=== PATIENT | male | born 1965 | race Caucasian/White ===

== ENCOUNTER 2017-07-20 10:04 | Day surgery (SDC) | payer OTHER ==
[~2017-07-20] VITALS: Ht 188 cm; Wt 145.2 kg
[~2017-07-20 10:04] MED LIST: ATOR80 PO; ATORVASTATIN CA80 MG; Advil200 M1 PO; DULO30 PO; FISH1000; LEVSOD125 PO; LISHYD2025 PO; LIVALO4 MG PO; METO25ER; OSTERA TABLET1 EACH
== END 2017-07-20 13:11 | disposition home or self-care (01) ==
LOC: ORSCSDS 10:04
PROVIDERS: Internal Medicine Gastroenterology
PROC: 0DBL8ZX Excision of Transverse Colon, Via Natural or Artificial Opening Endoscopic, Diagnostic (ICD-10-PCS; principal; 2017-07-20 11:15)
PROC: 0DBM8ZX Excision of Descending Colon, Via Natural or Artificial Opening Endoscopic, Diagnostic (ICD-10-PCS; principal; 2017-07-20 11:15)
DX: Z86.010 Personal history of colon polyps (principal); D12.3 Benign neoplasm of transverse colon; D12.4 Benign neoplasm of descending colon; K57.30 Diverticulosis of large intestine without perforation or abscess without bleeding; K64.8 Other hemorrhoids; E66.01 Morbid (severe) obesity due to excess calories; Z68.41 Body mass index [BMI] 40.0-44.9, adult; E03.9 Hypothyroidism, unspecified; E78.5 Hyperlipidemia, unspecified; G47.33 Obstructive sleep apnea (adult) (pediatric); I10 Essential (primary) hypertension; F32.9 Major depressive disorder, single episode, unspecified; Z87.891 Personal history of nicotine dependence; Z79.899 Other long term (current) drug therapy
CPT/HCPCS: 88305; J2250; J7120

== ENCOUNTER 2018-11-15 13:16 | Day surgery (SDC) | payer OTHER ==
[~2018-11-15] VITALS: Ht 190.5 cm; Wt 148.6 kg
[~2018-11-15 13:16] MED LIST changes: -ATORVASTATIN CA80 MG; +ATORVASTATIN CA80 MG PO; +FISH OIL 1,2001 EACH PO; +VITAMIN B122500 MCG PO
--- NOTE | 2018-11-15 16:25 | NUR ---
11/15/18 [id number] Karlee Mir WHEN ASKED PT. IF HE HAD ANY PAIN, PT. VERBALIZED HAVING A SHARP PAIN BUT TOLERABLE. PT. INSTRUCTED PROBABLY SOME AIR IN THE COLON & EVENTUALLY IT WOULD ABSORB.
== END 2018-11-15 16:24 | disposition home or self-care (01) ==
LOC: ORSCSDS 13:16
PROVIDERS: Internal Medicine Gastroenterology
PROC: 0DBL8ZX Excision of Transverse Colon, Via Natural or Artificial Opening Endoscopic, Diagnostic (ICD-10-PCS; principal; 2018-11-15 14:45)
DX: Z86.010 Personal history of colon polyps (principal); D12.3 Benign neoplasm of transverse colon; K57.30 Diverticulosis of large intestine without perforation or abscess without bleeding; K64.8 Other hemorrhoids; I10 Essential (primary) hypertension; E03.9 Hypothyroidism, unspecified; E78.5 Hyperlipidemia, unspecified; Z87.891 Personal history of nicotine dependence; Z79.899 Other long term (current) drug therapy
CPT/HCPCS: 88305; J2704; J7120

== ENCOUNTER 2019-02-10 09:33 | Day surgery (SDC) | payer OTHER ==
[~2019-02-10] VITALS: Ht 190.5 cm; Wt 153.3 kg
[~2019-02-10 09:33] MED LIST changes: +[UNRECOGNIZED DRUG - OTHER]
--- NOTE | 2019-02-10 11:56 | NUR ---
02/10/19 1156 Kandis García PT INTO RECLINER IN RECOVERY W/O DIFFICULTY. SPOUSE AT CHAIRSIDE. PT C/O 04/18 PAIN IN THE LEFT WRIST AND WISHES TO BE MEDICATED WITH PO PAIN MEDICATION PRIOR TO DISCHARGE. VSS. PT TOLERATING PO INTAKE WELL.
== END 2019-02-10 12:15 | disposition home or self-care (01) ==
LOC: ORSCSDS 09:33
PROVIDERS: Orthopaedic Surgery
PROC: 01N50ZZ Release Median Nerve, Open Approach (ICD-10-PCS; principal; 2019-02-10 10:45)
DX: G56.02 Carpal tunnel syndrome, left upper limb (principal); I10 Essential (primary) hypertension; E03.9 Hypothyroidism, unspecified; G47.33 Obstructive sleep apnea (adult) (pediatric); E66.01 Morbid (severe) obesity due to excess calories; Z68.41 Body mass index [BMI] 40.0-44.9, adult; Z79.899 Other long term (current) drug therapy
CPT/HCPCS: A9270-GY; J0690; J1885; J2250; J2704; J3010; J7120

== ENCOUNTER 2019-04-14 08:25 | Day surgery (SDC) | payer OTHER ==
[~2019-04-14] VITALS: Ht 190.5 cm; Wt 155.4 kg
[~2019-04-14 08:25] MED LIST changes: +LIPITOR80 MG PO; +METO25ER PO
== END 2019-04-14 10:56 | disposition home or self-care (01) ==
LOC: ORSCSDS 08:25
PROVIDERS: Orthopaedic Surgery
PROC: 01N50ZZ Release Median Nerve, Open Approach (ICD-10-PCS; principal; 2019-04-14 10:15)
DX: G56.01 Carpal tunnel syndrome, right upper limb (principal); I10 Essential (primary) hypertension; E66.01 Morbid (severe) obesity due to excess calories; Z68.41 Body mass index [BMI] 40.0-44.9, adult; Z79.899 Other long term (current) drug therapy
CPT/HCPCS: J0690; J2001; J2250; J7120

== ENCOUNTER 2020-05-07 12:39 | Day surgery (SDC) | payer OTHER ==
[~2020-05-07] VITALS: Ht 190.5 cm; Wt 160.4 kg
== END 2020-05-07 14:24 | disposition home or self-care (01) ==
LOC: ORSCSDS 12:39
PROVIDERS: Internal Medicine Gastroenterology
PROC: 0DJD8ZZ Inspection of Lower Intestinal Tract, Via Natural or Artificial Opening Endoscopic (ICD-10-PCS; principal; 2020-05-07 14:15)
DX: Z86.010 Personal history of colon polyps (principal); D12.3 Benign neoplasm of transverse colon; D12.5 Benign neoplasm of sigmoid colon; K57.30 Diverticulosis of large intestine without perforation or abscess without bleeding; K64.8 Other hemorrhoids; I10 Essential (primary) hypertension; E03.9 Hypothyroidism, unspecified; E66.01 Morbid (severe) obesity due to excess calories; Z68.41 Body mass index [BMI] 40.0-44.9, adult; Z79.899 Other long term (current) drug therapy
CPT/HCPCS: 88307; J2250; J2405; J2704; J7120

== ENCOUNTER 2021-03-02 08:27 | Day surgery (SDC) | payer OTHER ==
[~2021-03-02] VITALS: Ht 190.5 cm; Wt 156.5 kg
[~2021-03-02 08:27] MED LIST changes: +ADVIL PM PO; +Aspir 8181 MG PO; +CELE200 PO; +ERGO50000 PO; +EZET10; +Mobic15 MG PO
--- NOTE | 2021-03-02 12:02 | NUR ---
1 cc air removed from TR BAND. NO BLEEDING AT SITE
--- NOTE | 2021-03-02 12:38 | NUR ---
REMAINDER OF AIR REMOVED FROM TR BAND OVER 25 MINUTES NO BLEEDING AT SITE.CIRCULATION, MOTION, SENSATION NORMAL.
--- NOTE | 2021-03-02 13:50 | NUR ---
DISCHARGE INSTRUCTIONS GIVEN WITH VERBAL AND WRITTEN UNDERSTANDING.DISCHARGED HOME VIA WHEELCHAIR. DRIVING.
== END 2021-03-02 13:50 | disposition home or self-care (01) ==
LOC: MHTC 08:27
DX: I25.110 Atherosclerotic heart disease of native coronary artery with unstable angina pectoris (principal); I10 Essential (primary) hypertension; E78.5 Hyperlipidemia, unspecified; E03.9 Hypothyroidism, unspecified; E66.9 Obesity, unspecified
CPT/HCPCS: 93454; 99152; 99153; C1769; C1887; C1894; J1644; J2250; J3010; J7030

== ENCOUNTER 2022-06-14 08:46 | Day surgery (SDC) | payer OTHER ==
[~2022-06-14] VITALS: Ht 190.5 cm; Wt 154.6 kg
[2022-06-14] MEDS ORDERED: Cymbalta20 MG (09:34)
[2022-06-14] MEDS ORDERED: EZET10 (09:34)
== END 2022-06-14 11:18 | disposition home or self-care (01) ==
LOC: ORSCSDS 08:46
PROVIDERS: Internal Medicine Gastroenterology
PROC: 0DBL8ZX Excision of Transverse Colon, Via Natural or Artificial Opening Endoscopic, Diagnostic (ICD-10-PCS; principal; 2022-06-14 10:15)
PROC: 0DBM8ZX Excision of Descending Colon, Via Natural or Artificial Opening Endoscopic, Diagnostic (ICD-10-PCS; principal; 2022-06-14 10:15)
PROC: 0DBK8ZX Excision of Ascending Colon, Via Natural or Artificial Opening Endoscopic, Diagnostic (ICD-10-PCS; principal; 2022-06-14 10:15)
DX: Z12.11 Encounter for screening for malignant neoplasm of colon (principal); Z86.010 Personal history of colon polyps; D12.2 Benign neoplasm of ascending colon; D12.3 Benign neoplasm of transverse colon; D12.4 Benign neoplasm of descending colon; I10 Essential (primary) hypertension; K57.30 Diverticulosis of large intestine without perforation or abscess without bleeding; K64.8 Other hemorrhoids; G72.9 Myopathy, unspecified; E66.9 Obesity, unspecified; Z68.41 Body mass index [BMI] 40.0-44.9, adult; Z87.891 Personal history of nicotine dependence; Z79.899 Other long term (current) drug therapy
CPT/HCPCS: 88305; J2250; J2704; J7120

== ENCOUNTER 2022-11-20 05:59 | Day surgery (SDC) | payer OTHER | END 2022-11-20 22:57 | disposition home or self-care (01) | LOC: MHTC 05:59 | DX: I48.0 Paroxysmal atrial fibrillation (principal); I25.10 Atherosclerotic heart disease of native coronary artery without angina pectoris ==

== ENCOUNTER 2023-01-19 10:29 | Day surgery (SDC) | payer OTHER ==
[~2023-01-19] VITALS: Ht 190.5 cm; Wt 161.0 kg
[~2023-01-19 10:29] MED LIST changes: +Crestor40 MG PO; +Cymbalta20 MG PO; +XARELTO20 MG PO
[2023-01-19] MEDS ORDERED: LEVSOD150 PO (10:52)
[2023-01-19] MEDS ORDERED: FLECAINIDE ACE150 M1 PO (10:53)
[2023-01-19 12:00] VITALS: BP 89/65
[2023-01-19 12:15] VITALS: BP 93/66
[2023-01-19 12:18] VITALS: BP 95/69
--- NOTE | 2023-01-19 12:30 | NUR ---
PT A&OX4, AND VERBALZIE D/C INSTRUCTIONS, IV D/C CATHETER INTACT. PT WHEELED OUT OF DEPT. PT SPOUSE DRIVING PT HOME.
--- NOTE | 2023-01-19 12:30 | NUR ---
EKG DONE, PT REMAINS IN SINUS RHYTHM AFTER PROCEDURE. HR 68
== END 2023-01-22 22:51 | disposition home or self-care (01) ==
LOC: ORSCMMR 10:29 → MHTC 10:29 → ORSCMMR 10:30 → ORD 11:30 → ORSCMMR 11:30 → MHTC 01-22 22:51
DX: I48.19 Other persistent atrial fibrillation (principal); I10 Essential (primary) hypertension; E66.01 Morbid (severe) obesity due to excess calories; I25.10 Atherosclerotic heart disease of native coronary artery without angina pectoris; E78.5 Hyperlipidemia, unspecified
CPT/HCPCS: 92960; 93005; 93010; J2704; J7030